=== PATIENT | male | born 1980 | race African-American/Black ===

== ENCOUNTER 2018-04-19 19:48 | Emergency (ER) | payer OTHER ==
[~2018-04-19] VITALS: Ht 177.8 cm; Wt 87.5 kg
[2018-04-19] MEDS ORDERED: NAPROSYN500 MG PO (20:27)
[2018-04-19 20:50] VITALS: BP 158/88
== END 2018-04-19 21:00 | disposition home or self-care (01) ==
LOC: ER 19:48
DX: S86.012A Strain of left Achilles tendon, initial encounter (principal); F17.210 Nicotine dependence, cigarettes, uncomplicated; X58.XXXA Exposure to other specified factors, initial encounter; Y93.67 Activity, basketball; Y92.89 Other specified places as the place of occurrence of the external cause; Y99.8 Other external cause status